=== PATIENT | male | born 1990 | race Caucasian/White ===

== ENCOUNTER 2017-07-04 14:29 | Emergency (ER) | payer BC ==
[~2017-07-04] VITALS: Ht 188 cm; Wt 80.7 kg
--- NOTE | 2017-07-04 15:03 | ER Report ---
History and Physical Time Seen By MD: 14:45 Hx. of Stated Complaint: LEFT CLAVICLE INJURY WHILE SNOW BOARDING HPI/ROS Chief concern: left clavicle pain HPI: 26 year old male presents following a snowboarding accident two hours ago. Reports catching toe, and falling forward. Denies hitting head or losing consciousness. Reports he heard a "snap", and waited to stand until esthetician/skin therapist arrived. Reports ability to walk upon standing. Denies blurred,double vision, or posterior neck pain. Reports pain left clavicular area, not extending into shoulder or down left arm. Denies numbness/tingling to left upper extremity. Allergies: Coded Allergies: No Known Drug Allergies (Unverified , 07/04/17) Home Meds Active Scripts Hydrocodone Bit/Acetaminophen (HYDROCODON-ACETAMINOPHEN 5-325) 1 Each Tablet, 1 EACH PO Q4-6H Y for PAIN, #20 TAB Prov:MICHELINE DE LEON 07/04/17 Past Medical/Surgical History History of bowel surgery, history of GI disorders "internal suturing to esophagus". Reviewed Nurses Notes: Yes Smoking Status: Never Smoker Hx Substance Use Disorder: No Constitutional Vital Sign - Last 24 Hours 07/04/17 07/04/17 14:35 16:10 Temp 98.0 Pulse 78 74 Resp 18 16 B/P (MAP) 151/90 145/91 (109) Pulse Ox 95 94 O2 Delivery Room Air Room Air Physical Exam HEENMT: PERRLA, EOMI. No lacerations or abrasions to scalp and face. Neck: supple, nontender Respiratory: clear to auscultation bilaterally. CV: regular rate and rhythm. Capillary refill <2 seconds bilateral upper extremities. Musculoskeletal: inflammation, no ecchymosis to left clavicle, with tenderness to palpation mid-shaft and laterally. Upper extremities: no bony deformities, inflammation, or tenderness in acromioclavicular joint. Full ROM right upper extremity; Diminished ROM left upper extremity, due to pain. 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 Neuro: Sensations to touch intact bilateral upper extremities. Differentials include left clavicle fracture, contusion, strain. Medical Decision Making EKG/Imaging Imaging 2 views left clavicle Indication: Fall snowboarding with audible snap and pain Comparison: None available Findings: Transverse fracture through the mid left clavicular shaft with approximately one shaft width superior/inferior displacement of the fracture fragments. The acromion clavicular joint remains intact. Left glenohumeral joint appears intact. IMPRESSION: Transverse fracture through the mid left clavicular shaft with approximately one shaft with displacement, as above. Report Dictated By: Bro Hamilton MD at 07/04/2017 3:42 PM Report E-Signed By: Bro Hamilton MD at 07/04/2017 3:43 PM ED Course/Re-evaluation ED Course HPI and thorough review of systems obtained from patient. Physical exam revealed inflammation to left mid and lateral clavicle, and tenderness to palpation. Brachial and radial pulses 2+, regular bilaterally. AOMx3. Neck nontender with full ROM. Differentials considered included left clavicle fracture. Xray revealed left clavicle fracture with approximately 1 shaft width displacement. Shoulder immobilizer provided, with instructions to follow up with orthopedics in patient's town of residence. Hydrocodone prescribed for pain , with instructions to take ibuprofen as needed. Ice area 2-3 times a day. Patient is to follow-up with orthopedics when he returns home to [facility]. Discusses with the patient who verbalized understanding and agreement with plan. Decision to Disposition Date: Jul 04, 2017 Decision to Disposition Time: 16:04 Depart Departure Latest Vital Signs Vital Signs Date Time Temp Pulse Resp B/P (MAP) Pulse Ox O2 Delivery O2 Flow Rate FiO2 07/04/17 16:10 74 16 145/91 (109) 94 Room Air 07/04/17 14:35 98.0 Impression: Primary Impression: Fracture, clavicle closed, shaft Condition: Improved Disposition: HOME OR SELF-CARE New Scripts Hydrocodone Bit/Acetaminophen (HYDROCODON-ACETAMINOPHEN 5-325) 1 Each Tablet 1 EACH PO Q4-6H Y for PAIN, #20 TAB Prov: MICHELINE DE LEON 07/04/17 Patient Instructions: Clavicle Fracture (ED) Additional Instructions: Shoulder immobilizer may be removed for showers only. Follow up Thursday with orthopedics. Take prescribed hydrocodone q4-6 hours as needed. Take ibuprofen as needed for pain, 2-3 times a day, in addition to hydrocodone. Ice area as needed for pain. MICHELINE DE LEON Jul 04, 2017 15:03
[2017-07-04] MEDS ORDERED: APAP/HYDROCODONE 325/5 TAB PO ONE (15:15)
--- NOTE | 2017-07-04 15:47 | RADIOLOGY IMAGING REPORT ---
FACILITY: [facility] PATIENT NAME: Michael Esparza : 1990 MR: [id number] V: [id number] EXAM DATE: ORDERING PHYSICIAN: MICHELINE DE LEON TECHNOLOGIST: Location: [facility] [place] Patient: Michael Esparza : 1990 Visit/Account:[id number] Date of Sevice: 07/04/2017 2 views left clavicle Indication: Fall snowboarding with audible snap and pain Comparison: None available Findings: Transverse fracture through the mid left clavicular shaft with approximately one shaft width superior /inferior displacement of the fracture fragments. The acromion clavicular joint remains intact. Left glenohumeral joint appears intact. IMPRESSION: Transverse fracture through the mid left clavicular shaft with approximately one shaft with displacem ent, as above. Report Dictated By: Bro Hamilton MD at 07/04/2017 3:42 PM Report E-Signed By: Bro Hamilton MD at 07/04/2017 3:43 PM WSN:[id number]
[2017-07-04] MEDS ORDERED: HYDR-385 PO (16:05)
[2017-07-04 16:10] VITALS: BP 145/91
== END 2017-07-04 16:15 | disposition home or self-care (01) ==
LOC: ER 14:43
DX: S42.022A Displaced fracture of shaft of left clavicle, initial encounter for closed fracture (principal); Y93.23 Activity, snow (alpine) (downhill) skiing, snowboarding, sledding, tobogganing and snow tubing; Y92.39 Other specified sports and athletic area as the place of occurrence of the external cause; Y99.8 Other external cause status
CPT/HCPCS: 73000; 99283; L3982